=== PATIENT | female | born 1990 | race Caucasian/White ===

== ENCOUNTER 2024-04-20 05:55 | Day surgery (SDC) | payer OTHER, SELFPAY ==
[2024-04-20] VITALS (11 sets, daily range): BP systolic 112–123; BP diastolic 71–87; PULSE 64–717; RESP 14–20; TEMP 36.2–36.5; O2SAT 94–98; BMI 34.9
--- NOTE | 2024-04-20 06:11 | CRLHL7_ITS ---
For Patients: As a result of the Century Cures Act, medical imaging exams and procedure reports are released immediately into your electronic medical record. You may view this report before your referring provider. If you have questions, please contact your health care provider. INDICATION: Right upper quadrant abdomen pain. TECHNIQUE: Ultrasound abdomen limited. Sonographic images of the right upper quadrant were obtained using bernardo-scale and color Doppler images. COMPARISON: None. FINDINGS: Liver: Normal in size and echotexture. No suspicious masses. No intrahepatic biliary dilatation. Gallbladder: Dilated with stones and sludge. Wall thickness is at the upper limits of normal measuring 3 millimeters. No pericholecystic fluid. Sonographic Hernandez`s sign is negative. Common bile duct: 5 mm. Pancreas: Pancreatic tail is poorly visualized due to bowel gas. Remainder of the pancreas is unremarkable. Right kidney: Normal in size. Normal echotexture and cortex. No suspicious masses, stones, or hydronephrosis. Vasculature: Proximal abdominal aorta and IVC are unremarkable. IMPRESSION: Dilated gallbladder with cholelithiasis and layering sludge. Gallbladder wall thickness is at the upper limits of normal measuring 3 millimeters, but there is no pericholecystic fluid. Sonographic Hernandez`s sign is negative. These findings are equivocal for cholecystitis, but can seen with early cholecystitis. Correlate with labs. If further imaging evaluation is desired, HIDA scan can be considered. Dictated by Jolene Amador MD @ 04/20/2024 7:18:13 AM (Electronically Signed)
[2024-04-20] MEDS: PANTOPRAZOLE SODIUM 40 MG INJ IVP (06:37)
--- NOTE | 2024-04-20 06:47 | ED.ABDPAIN ---
HPI - Abdominal Pain General Chief Complaint: Abdominal Pain Stated Complaint: Abd pain/nausea Time Seen by Provider: 04/20/24 06:13 History of Present Illness HPI narrative: Patient is a 33-year-old woman who has spent a very difficult night with severe right upper quadrant pain with radiation through to her back. She has had no nausea or vomiting but the pain has been unremitting and sharp. She has had no change in her bowel or bladder no fevers no chills. Patient has had no similar symptoms in takes no home medications. She has tried Tums overnight with no improvement. Related Data Allergies Allergy/AdvReac Type Severity Reaction Status Date / Time No Known Drug Allergies Allergy Verified 04/20/24 06:07 Review of Systems Status of ROS Reports: 10 or more systems reviewed and unremarkable except as noted in History and below Exam Narrative: Exam Narrative: EXAM GENERAL: Patient appears comfortable and well. EYES: No scleral icterus. LYMPH: No supraclavicular or cervical lymphadenopathy. SKIN: Visible skin seen during exam normal or with benign process only. EXT: No dependent lower extremity pedal edema. HEART: Regular rate and rhythm with no murmurs, rubs, or gallops. LUNGS: Clear to auscultation bilaterally with no crackles or wheezes. ABD: Tender to palpation in the right upper quadrant no other significant findings positive bowel sounds throughout. PSYCH: Good eye contact, speech is not pressured. Const: Vital Signs, click to edit/add: Vital Signs - 24 hr 04/20/24 06:02 Temperature 97.6 F Pulse Rate [Right Pulse Oximeter] 71 Respiratory Rate 16 Blood Pressure [Ri ght Upper Arm] 114/77 Pulse Oximetry 98 Oxygen Delivery Me thod Room Air Course Course ED Course: Patient seen and examined. Ultrasound CBC CMP lipase pending. Vital Signs Vital signs: Initial Vital Signs Temperature 97.6 F 04/20/24 06:02 Temperature Source Temporal Artery Scan 04/20/24 06:02 Pulse Rate 71 04/20/24 06:02 Pulse Rhythm Regular 04/20/24 06:02 Pulse Strength 3+ Normal 04/20/24 06:02 Respiratory Rate 16 04/20/24 06:02 Blood Pressure 114/77 04/20/24 06:02 Blood Pressure Mean 89 04/20/24 06:02 Blood Pressure Position Sitting 04/20/24 06:02 Pulse Oximetry 98 04/20/24 06:02 Oxygen Delivery Method Room Air 04/20/24 06:02 Vital Signs Temperature 97.6 F 04/20/24 06:02 Pulse Rate 71 04/20/24 06:02 Respiratory Rate 16 04/20/24 06:02 Blood Pressure 114/77 04/20/24 06:02 Pulse Oximetry 98 04/20/24 06:02 Oxygen Delivery Method Room Air 04/20/24 06:02 Temperature 97.6 F 04/20/24 06:02 Pulse Rate 71 04/20/24 06:02 Respiratory Rate 16 04/20/24 06:02 Blood Pressure 114/77 04/20/24 06:02 Pulse Oximetry 98 04/20/24 06:02 Oxygen Delivery Method Room Air 04/20/24 06:02 Medications Administered Medications: Discontinued Medications Generic Name Dose Route Start Last Admin Trade Name Freq PRN Reason Stop Dose Admin Ketorolac Tromethamine 30 mg 04/20/24 07:20 04/20/24 07:31 Ketorolac 30 Mg/Ml Inj IVP 04/20/24 07:21 30 mg ONCE ONE Administration Pantoprazole Sodium 40 mg 04/20/24 06:11 04/20/24 06:37 Pantoprazole Sodium 40 Mg Inj IVP 04/20/24 06:12 40 mg ONCE ONE Administration MDM - Abdominal Pain MDM Narrative Medical decision making narrative: Patient is a 33-year-old woman who comes in today with severe right upper quadrant pain. She has had no fever but does have elevated white blood cell count. Her liver function tests are normal. She is given a dose of Toradol as well as IV Protonix with no improvement. Case reviewed general surgery who have reviewed her ultrasound and agree that she is a suitable candidate for cholecystectomy due to cholelithiasis. Patient will be admitted same-day surgery. Lab Data Labs: Lab Results 04/20/24 Range/Units 06:31 WBC 15.51 H (4.50-11.00) K/uL RBC 4.27 (4.00-5.20) m/uL Hgb 13.1 (12.0-16.0) gm/dL Hct 39.1 (33.0-51.0) % MCV 92 (80-100) fL MCH 31 (26-34) pg MCHC 34 (32-36) gm/dL RDW Coeff of Stephanie 12.1 (11.5-15.5) % Plt Count 251 (140-440) K/uL Neut % (Auto) 92.1 H (42.0-72.0) % Lymph % (Auto) 5.9 L (20-44) % O'Brien % (Auto) 1.8 (0.0-11.0) % Eos % (Auto) 0.0 (0.0-7.0) % Baso % (Auto) 0.1 (0.0-3.0) % Neut # (Auto) 14.30 H (1.7-7.0) K/uL Lymph # (Auto) 0.90 (0.90-2.90) K/uL O'Brien # (Auto) 0.30 (0.00-0.90) K/UL Eos # (Auto) 0.00 (0.00-0.50) K/uL Baso # (Auto) 0.00 (0.00-0.30) K/uL Abs Immat Gran (auto) 0.00 (0.00-0.30) K/uL Imm/Tot Granulo (auto) 0.1 % Sodium 137 (135-149) mmol/L Potassium 4.1 (3.6-5.1) mmol/L Chloride 104 (96-114) mmol/L Carbon Dioxide 24 (20-32) mmol/L Anion Gap 9 (7-15) mEq/L BUN 13 (5-24) mg/dL Creatinine 0.6 (0.5-1.5) mg/dL Estimated Creat Clear 118.88 Estimated GFR 121 ml/min Glucose 144 H (60-115) mg/dL Calcium 9.3 (8.4-10.6) mg/dL Total Bilirubin 0.4 (0.1-1.5) mg/dL AST 24 (12-35) U/L ALT 26 (4-35) U/L Alkaline Phosphatase 77 (40-150) U/L Troponin I < 0.01 L (0.01-0.04) ng/mL Total Protein 7.4 (6.0-8.3) g/dL Albumin 4.3 (3.3-5.0) g/dL Lipase 51 (23-300) U/L Discharge Plan Discharge Clinical Impression: Cholelithiasis Patient Disposition: Admitted As Observation Condition: Stable Activity Level: Other Discharge Diet: Other Follow Up/Referrals: Provider,Not a Local [Primary Care Provider] -
[2024-04-20 06:54] LABS: Basophils Percent Auto 0.1 % (0.0-3.0); Hematocrit 39.1 % (33.0-51.0); Hemoglobin* 13.1 gm/dL (12.0-16.0); Immature Granulocytes Pct Auto 0.1 %; Lymphocytes Percent Auto 5.9 % (20-44); Mean Corpuscular HGB Conc 34 gm/dL (32-36); Mean Corpuscular Hemoglobin 31 pg (26-34); Mean Corpuscular Volume 92 fL (80-100); Monocytes Percent Auto 1.8 % (0.0-11.0); Neutrophils Percent Auto 92.1 % (42.0-72.0); Platelet Count* 251 K/uL (140-440); RDW Coefficient of Variation % 12.1 % (11.5-15.5); Red Blood Count 4.27 m/uL (4.00-5.20); White Blood Count* 15.51 K/uL (4.50-11.00)
[2024-04-20 07:10] LABS: Albumin* 4.3 g/dL (3.3-5.0); Chloride* 104 mmol/L (96-114); Sodium* 137 mmol/L (135-149)
[2024-04-20 07:11] LABS: Potassium* 4.1 mmol/L (3.6-5.1)
[2024-04-20 07:12] LABS: Slide Review Reflex No
[2024-04-20 07:13] LABS: Alkaline Phosphatase* 77 U/L (40-150); Anion Gap 9 mEq/L (7-15); Aspartate Amino Transferase* 24 U/L (12-35); Bilirubin Total* 0.4 mg/dL (0.1-1.5); Blood Urea Nitrogen* 13 mg/dL (5-24); Carbon Dioxide* 24 mmol/L (20-32); Creatinine* 0.6 mg/dL (0.5-1.5); Est. Creatinine Clearance* 118.88; Estimated Glomerular Filt Rate 121 ml/min; Total Protein* 7.4 g/dL (6.0-8.3)
[2024-04-20 07:14] LABS: Alanine Aminotransferase* 26 U/L (4-35); Calcium* 9.3 mg/dL (8.4-10.6); Glucose* 144 mg/dL (60-115); Lipase* 51 U/L (23-300)
[2024-04-20] MEDS: KETOROLAC 30 MG/ML inj IVP (07:31)
[2024-04-20 07:32] LABS: Troponin I* < 0.01 ng/mL (0.01-0.04)
--- NOTE | 2024-04-20 09:29 | P.GSCN_ITS ---
History of Present Illness Consult details Date Seen: 04/20/24 Consult date: 04/20/24 Narrative: 33-year-old female presented to emergency room with epigastric abdominal pain that was radiating to the right upper quadrant and to her back. The pain was described as severe. Patient started to experience pain last night after she had Thanksgiving dinner and had [place] later on in the evening. Initially she had nausea and then overnight she was vomiting multiple times. Her pain was uncomfortable and she could not get comfortable to get sleep. She tried ibuprofen and Tums to control her pain but that did not improve her pain. I personally reviewed her workup in the emergency room. She was found to have elevated WBC of 15. Her liver function tests were normal. Abdominal ultrasound was obtained that showed distended gallbladder with sludge and cholelithiasis. The gallbladder wall was measured at 3 mm and common bile duct was normal. There was no pericholecystic fluid noted. Review of Systems Narrative: General: no fevers HENT: no problems swallowing CV: no shortness of breath Resp: no cough GI: No nausea, vomiting, abdominal pain : no dysuria, no increased urinary frequency, no hematuria Skin: no new rashes Musculoskeletal: no back pain Neuro: no muscle weakness Psyche: no depression, no anxiety PFSH PFSH Surgical History History of appendectomy ?Z90.49 - Acquired absence of other specified parts of digestive tract (ICD- 10) Social History Narrative: Patient denies smoking occasionally drinks alcohol. She works as a occupational health nursing director. Meds Home Medications and Allergies Allergies Allergy/AdvReac Type Severity Reaction Status Date / Time No Known Drug Allergies Allergy Verified 04/20/24 06:07 Exam Narrative: Exam Narrative: General appearance: Alert, cooperative, and in no distress Pulmonary: Chest symmetric, lungs clear bilaterally Cardiovascular Heart: Regular rate and rhythm, S1, S2, no murmurs/rubs/gallops Gastrointestinal Abdominal: soft, not distended, tender to palpation in epigastrium and right upper quadrant with negative Hernandez sign. Skin: Normal skin color, texture, and turgor. No rashes or lesions. Psychiatric: Alert, cooperative, normal affect. Const: Vital Signs, click to edit/add: Vital Signs - 24 hr 04/20/24 06:02 Temperature 97.6 F Pulse Rate [Right Pulse Oximeter] 71 Respiratory Rate 16 Blood Pressure [Ri ght Upper Arm] 114/77 Pulse Oximetry 98 Oxygen Delivery Me thod Room Air Results Labs Labs: Abnormal lab results 04/20/24 Range/Units 06:31 WBC 15.51 H (4.50-11.00) K/uL Neut % (Auto) 92.1 H (42.0-72.0) % Lymph % (Auto) 5.9 L (20-44) % Neut # (Auto) 14.30 H (1.7-7.0) K/uL Glucose 144 H (60-115) mg/dL Troponin I < 0.01 L (0.01-0.04) ng/mL Diabetes panel 04/20/24 Range/Units 06:31 Sodium 137 (135-149) mmol/L Potassium 4.1 (3.6-5.1) mmol/L Chloride 104 (96-114) mmol/L Carbon Dioxide 24 (20-32) mmol/L BUN 13 (5-24) mg/dL Creatinine 0.6 (0.5-1.5) mg/dL Glucose 144 H (60-115) mg/dL Calcium 9.3 (8.4-10.6) mg/dL AST 24 (12-35) U/L ALT 26 (4-35) U/L Alkaline Phosphatase 77 (40-150) U/L Total Protein 7.4 (6.0-8.3) g/dL Albumin 4.3 (3.3-5.0) g/dL Calcium panel 04/20/24 Range/Units 06:31 Calcium 9.3 (8.4-10.6) mg/dL Albumin 4.3 (3.3-5.0) g/dL Pituitary panel 04/20/24 Range/Units 06:31 Sodium 137 (135-149) mmol/L Potassium 4.1 (3.6-5.1) mmol/L Chloride 104 (96-114) mmol/L Carbon Dioxide 24 (20-32) mmol/L BUN 13 (5-24) mg/dL Creatinine 0.6 (0.5-1.5) mg/dL Glucose 144 H (60-115) mg/dL Calcium 9.3 (8.4-10.6) mg/dL Adrenal panel 04/20/24 Range/Units 06:31 Sodium 137 (135-149) mmol/L Potassium 4.1 (3.6-5.1) mmol/L Chloride 104 (96-114) mmol/L Carbon Dioxide 24 (20-32) mmol/L BUN 13 (5-24) mg/dL Creatinine 0.6 (0.5-1.5) mg/dL Glucose 144 H (60-115) mg/dL Calcium 9.3 (8.4-10.6) mg/dL Total Bilirubin 0.4 (0.1-1.5) mg/dL AST 24 (12-35) U/L ALT 26 (4-35) U/L Alkaline Phosphatase 77 (40-150) U/L Total Protein 7.4 (6.0-8.3) g/dL Albumin 4.3 (3.3-5.0) g/dL All other labs normal. Progress Note:A&P Assessment and plan (1) Cholecystitis, acute: Status: Acute Assessment and Plan: 33-year-old female presents with epigastric and right upper quadrant pain most likely due to acute cholecystitis. I discussed with the patient my clinical findings. We talked about her laboratory and ultrasound findings. Patient's pain is suspicious for acute cholecystitis. On the ultrasound she has gallbladder wall at the upper limit of normal. Patient's pain was much more severe prior to pain medication in the emergency room. We discussed surgical treatment of acute cholecystitis with laparoscopic cholecystectomy. Patient elected to proceed with surgery. The procedure was discussed in detail and the risks associated procedure including infection, bleeding, injury to intra-abdominal organs, and injury to the common bile duct were all discussed with the patient, and she agreed to proceed.
--- NOTE | 2024-04-20 09:33 | P.GSOP_ITS ---
Operative Note Date of procedure: 04/20/24 Pre-op diagnosis: 1. Acute cholecystitis. Post-op diagnosis: Same Type of Procedure: 1. Laparoscopic cholecystectomy. Indications: 33-year-old female presented to emergency room with epigastric and right upper quadrant pain of more than 12 hour duration. The pain was severe and patient could not get comfortable throughout the night. On clinical exam she was found to have tenderness to palpation in the right upper quadrant and epigastrium. Upon her workup she was found to have elevated WBC of 15. Her gallbladder ultrasound showed dilated gallbladder with sludge and stones and the gallbladder wall of upper limits of normal. Patient's common bile duct was normal in size. Given patient's clinical history and her severe pain as well as ultrasound findings, acute cholecystitis was suspected in laparoscopic cholecystectomy was recommended. The procedure was discussed in detail. The risks associated procedure including infection, bleeding, injury to intra-abdominal organs, and injury to the common bile duct were all discussed with the patient, and she agreed to proceed. Procedure Description: After discussing the risks and benefits of the procedure, the patient signed informed consent.? The operative site was marked and the patient was brought to the operating room and placed on the operating table in supine position.? Care was taken to pad the patient's pressure points.?? The patient was then intubated by anesthesia.?? The operative site was then prepped and draped in the usual sterile fashion.? A time-out was then performed. A 5-mm laparoscopy port was placed in the left upper quadrant guided by a 5-mm laparoscope placed into a translucent trochar.~ Passage through the layers of the abdominal wall was visualized with the laparoscope.~ A pneumoperitoneum was established. A 0-degree 5-mm laparoscope was advanced into the abdomen. The abdomen was briefly surveyed, and no adhesions were noted. A 10-mm port were placed infraumbilically and two more 5 mm ports were placed on the right under direct visualization by laparoscope. The camera was then changed to 10 mm 30- degree scope and placed into the abdomen through the 10 mm port. The left upper quadrant port entrance was examined and no injury to intra-abdominal organs was identified. The gallbladder was identified, and was distended. Edema was noted surrounding the gallbladder consistent with acute cholecystitis. The gallbladder was decompressed with laparoscopic needle. 20 mL of bile was suctioned out of the gallbladder. This was not sent to microbiology. The fundus grasped and retracted cephalad. The infundibulum was grasped and retracted laterally, exposing the peritoneum overlying the triangle of Calot. This was then divided and exposed in a blunt fashion and with hook cautery. Common bile duct was not identified but care was taken not to injure it. The cystic duct was clearly identified and bluntly dissected circumferentially. The cystic artery was identified anterior to the cystic duct. This was skeletonized with [place] dissector and clipped with 5 mm clip on the patient's side and another clip on the specimen side and divided with hook cautery. This allowed better visualization of the cystic duct. Small stones were noted at the distal cystic duct. The cystic duct was then ligated with surgical 3 clips on the patient's side and singly clipped on the gallbladder side and divided. The gallbladder was dissected from the liver bed in retrograde fashion using hookcautery. During this dissection, a small opening was created in the gallbladder and bile spilled in the abdominal cavity. This was suctioned out. When the gallbladder was free from the liver, it was placed into an Endo-Catch bag and removed through the infraumbilical incision. Surgical site was examined for bleeding. No bleeding was seen in the surgical field. The right upper quadrant was then irrigated with normal saline. The fascia of the infraumbilical incision was then closed with interrupted 0-0 vicryl stitches using Edson Gunnar needle under direct visualization. Pneumoperitoneum was completely reduced after viewing removal of the trocars under direct vision. The skin was then closed with 4-0 monocryl and steristrips were applied. Instrument, sponge, and needle counts were correct at closure and at the conclusion of the case. The patient was transferred to PACU in stable condition. Findings: Acute cholecystitis. Small umbilical hernia was noted with incarcerated fat. Adhesions in the right lower quadrant from patient's previous open appendectomy. Anesthesia: GETA Surgeon: Edwar Pulido MD Estimated blood loss (mL): 5 Specimen: Gallbladder Condition: stable Disposition: PACU
[2024-04-20] MEDS: CEFAZOLIN 2 GM INJ IVP (09:35)
[2024-04-20] MEDS: LACTATED RINGERS 1000 ML 1,000 ML 100 ML IV (09:55)
--- NOTE | 2024-04-20 10:02 | W.ANESCHARGE ---
Anesthesia Charges Start Date/Time Anesthesia Start Date: 04/20/24 Anesthesia Start Time: 09:26 Stop Date/Time Anesthesia Stop Date: 04/20/24 Anesthesia Stop Time: 10:42 Summary Emergency: MDA
[2024-04-20] MEDS: LIDOCAINE 1%-EPI 1:100,000 20 ML INFILTRATI (10:28)
[2024-04-20] MEDS: BUPIVACAINE 0.25% 30 ML INJECTION (10:28)
--- NOTE | 2024-04-20 10:44 | W.ANESCHARGE ---
Anesthesia Charges Start Date/Time Anesthesia Start Date: 04/20/24 Anesthesia Start Time: 09:26 Stop Date/Time Anesthesia Stop Date: 04/20/24 Anesthesia Stop Time: 10:42 Summary Emergency: [employer]
--- NOTE | 2024-04-20 12:27 | SUR.PHASEII ---
antecubetal iv size 20 removed intact
== END 2024-04-20 12:29 | disposition home or self-care (01) ==
LOC: ED 08:03 → SS 09:25
PROVIDERS: Emergency Provider Internal Medicine; Visit Provider Surgery
PROC: 0FT44ZZ Resection of Gallbladder, Percutaneous Endoscopic Approach (ICD-10-PCS; CPT 47562; principal; 2024-04-20 09:45)
DX: K80.00 Calculus of gallbladder with acute cholecystitis without obstruction (principal); R10.11 Right upper quadrant pain; R10.13 Epigastric pain; K42.0 Umbilical hernia with obstruction, without gangrene
CPT/HCPCS: 47562; 00790; 36415; 76705; 80053; 83690; 84484; 85025; 88304; 93005; 99140; 99283; 99285; J0330; J0665; J0690; J1100; J1630; J1885; J2371; J2405; J2470; J2704; J3010; J7120